=== PATIENT | female | born 1995 | race Caucasian/White ===

== ENCOUNTER 2018-04-24 16:24 | Emergency (ER) | payer OTHER ==
--- NOTE | 2018-04-24 16:50 | EDPHY ---
HPI/HX/ROS/PE/MDM Narrative: CHIEF COMPLAINT: Headache, visual disturbance HPI: This patient is a healthy 23 year old female. She presents today with headache and visual disturbance. This morning around 10am, she noted visual disturbances including splotchy vision. Shortly after this, she developed head pressure, particularly in the frontal area. About an hour after this, her left hand became intermittently numb. She noted paresthesias in right hand and numbness in her tongue as well. She endorses associated nausea. The patient has history of migraines around age 10, but has not had one since then. These were generally associated with photophobia, which she is not experiencing today. She endorses recent cold symptoms. No recent head injuries or other trauma. She has not taken any medications for relief of symptoms. She denies fever, syncope, weakness, vomiting, urinary complaints, or other associated symptoms. REVIEW OF SYSTEMS: Aside from elements discussed in the HPI, a comprehensive 10-point review of systems was reviewed and is negative. PMH: Denies. SOCIAL HISTORY: Employed. Lives in [place]. Does not abuse tobacco, drugs, or alcohol. PHYSICAL EXAM: General:Patient is alert, in no acute distress. ENT:Eyes are normal to inspection. ENT inspection normal. Neck: Normal inspection. Full range of motion. Respiratory:No respiratory distress. Breath sounds normal bilaterally. Cardiovascular: Regular rate and rhythm. Strong peripheral pulses. Normal cap refill. Abdomen:The abdomen is nontender to palpation. There are no peritoneal signs. There are normal bowel sounds. Back: Normal to inspection. No tenderness to palpation. Skin: Normal color. No rash. Warm and dry. Extremities: Normal appearance. Full range of motion. Neuro: Oriented x3. Normal motor function. Normal sensory function. No pronator drift. Normal [id number]. ED Course: 23 y/o female presents with headache, visual disturbance, and intermittent bilateral upper extremity numbness/paresthesias. IV established. Plan for labs including CBC, chemistries, BHCG. Plan to administer migraine cocktail and IL IV NS for symptom relief. Discussed further studies including CT head vs. medical management. Plan to proceed with medication administration and then reassess. Laboratory studies largely unremarkable. 18:58 Reassessed patient. She is feeling better following medication administration. The patient has spoken with her mother and would like to proceed with CT head for further evaluation. 19:[address] Branch radiologist. CT head is negative for acute processes. 19:44: On re-evaluation, patient states she feels much better, and tells me that she spoke to her father on the phone who remarked that she seemed very improved. She still has a mild diffuse headache, but her nausea, parasthesias and visual symptoms have fully resolved. We discussed option of proceeding to an MRI and/or angiogram, and I offered this to her. Given dramatic improvement in symptoms and no objective neurologic deficit whatsoever on exam, the patient is clearly not a tPA candidate, and her symptoms seem very consistent with a complex migraine. She understands this diagnosis is not 100% without further testing, and is comfortable with the plan to go home tonight and follow-up with neurology as an outpatient via our referral. We discussed strict return precautions. - Data Points Imaging Results: Imaging Impressions Head CT 04/24/18 18:56 Impression: Normal CT scan of the head. Results called and discussed with Miguel Eaton MD on 04/24/2018 at 19:29. Laboratory Results: Laboratory Results 04/24/18 17:00 04/24/18 17:00 04/24/18 04/24/18 04/24/18 17:00 17:00 17:00 WBC 7.97 10^3/uL 10^3/uL (3.80-9.50) RBC 4.64 10^6/uL 10^6/uL (4.18-5.33) Hgb 14.8 g/dL g/dL (12.6-16.3) Hct 42.4 % % (38.0-47.0) MCV 91.4 fL fL (81.5-99.8) MCH 31.9 pg pg (27.9-34.1) MCHC 34.9 g/dL g/dL (32.4-36.7) RDW 11.4 % L % (11.5-15.2) Plt Count 279 10^3/uL 10^3/uL (150-400) MPV 9.7 fL fL (8.7-11.7) Neut % (Auto) 71.3 % % (39.3-74.2) Lymph % (Auto) 23.2 % % (15.0-45.0) [place] % (Auto) 4.5 % % (4.5-13.0) Eos % (Auto) 0.1 % L % (0.6-7.6) Baso % (Auto) 0.5 % % (0.3-1.7) Nucleat RBC Rel Count 0.0 % % (0.0-0.2) Absolute Neuts (auto) 5.68 10^3/uL 10^3/uL (1.70-6.50) Absolute Lymphs (auto) 1.85 10^3/uL 10^3/uL (1.00-3.00) Absolute Monos (auto) 0.36 10^3/uL 10^3/uL (0.30-0.80) Absolute Eos (auto) 0.01 10^3/uL L 10^3/uL (0.03-0.40) Absolute Basos (auto) 0.04 10^3/uL 10^3/uL (0.02-0.10) Absolute Nucleated RBC 0.00 10^3/uL 10^3/uL (0-0.01) Immature Gran % 0.4 % % (0.0-1.1) Immature Gran # 0.03 10^3/uL 10^3/uL (0.00-0.10) Sodium 139 mEq/L mEq/L (135-145) Potassium 4.1 mEq/L mEq/L (3.3-5.0) Chloride 106 mEq/L mEq/L (97-110) Carbon Dioxide 24 mEq/l mEq/l (22-31) Anion Gap 9 mEq/L mEq/L (6-14) BUN 10 mg/dL mg/dL (7-23) Creatinine 0.6 mg/dL mg/dL (0.6-1.0) Estimated GFR > 60 Glucose 100 mg/dL mg/dL (70-100) Calcium 9.8 mg/dL mg/dL (8.5-10.4) Beta HCG, Qual NEGATIVE Medications Given: Discontinued Medications Diphenhydramine HCl (Benadryl Injection) 25 mg IVP EDNOW ONE Stop: 04/24/18 16:53 Last Admin: 04/24/18 17:15 Dose: 25 mg Sodium Chloride (Ns) 1,000 mls @ 0 mls/hr IV EDNOW ONE; Wide Open PRN Reason: Protocol Stop: 04/24/18 16:53 Last Admin: 04/24/18 17:15 Dose: 1,000 mls Ketorolac Tromethamine (Toradol) 30 mg IVP EDNOW ONE Stop: 04/24/18 16:53 Last Admin: 04/24/18 17:14 Dose: 30 mg Metoclopramide HCl (Reglan Injection) 10 mg IVP EDNOW ONE Stop: 04/24/18 16:53 Last Admin: 04/24/18 17:14 Dose: 10 mg General Time Seen by Provider: 04/24/18 16:43 Initial Vital Signs: Initial Vital Signs Heart Rate 79 04/24/18 16:30 Respiratory Rate 16 04/24/18 16:30 Blood Pressure 120/78 04/24/18 16:30 O2 Sat (%) 95 04/24/18 16:30 O2 Delivery Mode Room Air Allergies/Adverse Reactions: No Known Allergies Allergy (Unverified 04/24/18 16:32) Home Medications: Medication Instructions Recorded NK [No Known Home Meds] 04/24/18 Departure - Departure Disposition: Home, Routine, Self-Care Clinical Impression: Migraine Qualifiers: Migraine type: other Status migrainosus presence: without status migrainosus Intractability: not intractable Qualified Code(s): G43.809 - Other migraine, not intractable, without status migrainosus Condition: Good Instructions: Migraine Headache (ED) Additional Instructions: Follow-up with your primary care physician within 2-3 days. We have also referred you to neurology for further evaluation. Return to the emergency department for recurrence of headache, nausea, vomiting , numbness, weakness, neck pain, fever or other concerns. Use Tylenol and/or ibuprofen as directed. Referrals: Angella Sotomayor MD [Medical Doctor] - As per Instructions Yogesh Bee DO [Doctor of Osteopathy] - As per Instructions Report Scribed for: Miguel Eaton Report Scribed by: Gretchen Dozier Date of Report: 04/24/18 Time of Report: 16:52 Physician Review and Approval Statement: Portions of this note were transcribed by an ED scribe. I personally performed the history, physical exam, and medical decision making; and confirm the accuracy of the information in the transcribed note.
[2018-04-24] MEDS ORDERED: NS 1,000 ML IV ONE (16:52)
[2018-04-24] MEDS ORDERED: METOCLOPRAMIDE 10 MG/2 ML VIAL IVP ONE (16:52)
[2018-04-24] MEDS ORDERED: KETOROLAC 30 MG/1 ML SDV IVP ONE (16:52)
[2018-04-24 17:16] LABS: PLATELET COUNT 279 10^3/uL (150-400)
[2018-04-24 19:55] VITALS: BP 106/69
== END 2018-04-24 19:55 | disposition home or self-care (01) ==
DX: G43.109 Migraine with aura, not intractable, without status migrainosus (principal); R20.2 Paresthesia of skin; E86.9 Volume depletion, unspecified
CPT/HCPCS: 96374; J1200; J1885; J2765